=== PATIENT | female | born 1955 | race Caucasian/White ===

== ENCOUNTER 2025-06-12 12:19 | Emergency (ER) | payer OTHER, SELFPAY ==
[2025-06-12 12:23] VITALS: BP 146/91
--- NOTE | 2025-06-12 13:29 | ED.GENMED ---
History of Present Illness
General
Chief Complaint: Headache
Source: patient and spouse
Time Seen by Provider: 06/12/25 13:10
History of Present Illness
History of Present Illness:
This patient is a 70-year-old female presents emergency department with complaints of headache. She says it is a typical 'migraine' for her for which she is under the care of a neurologist for. Patient states that for years she has had migraines
usually once every few months but in the last 4 years, since getting a COVID shot, she gets the headaches with much more frequency such that they are essentially constant and just temporarily relieved with medications. She saw a neurologist 3 weeks
ago and was prescribed steroids which helped her but then the headache resumes once she finishes the steroids. She denies recent trauma or fall, fever, chills, numbness, tingling, diplopia, dysarthria, dysphagia, imbalance, dizziness,
lightheadedness, chest pain, dyspnea. She does note the typical nausea and photosensitivity with migraines. She states that the headache is located across the top and back of her head. She is taking daily medication for this with partial relief
of symptoms.
Past History
Past History
ED Past Medical History: Other (Migraines)
ED Past Surgical History: Other (Breast implant removal)
Social History
Tobacco: Non-smoker
Alcohol: None
Drug: None
Personal:
Living: with family
Phy Exam
Physical Exam
Physical Exam:
GENERAL: Alert , in no apparent distress
EYE: pupils equal and reactive, no nystagmus, EOMI, no objective photophobia noted
NECK: Supple, no significant adenopathy.
ENT: o/p clr, mmm.
CARDIAC: Regular rate and rhythm .
LUNGS: Clear breath sounds bilaterally, no acute respiratory distress, no wheezes/rales/rhonchi
ABDOMEN: Soft, without focal tenderness, no r/g, no cvat
NEUROLOGICAL: Alert and oriented, no focal neuro deficits, [id number] normal, motor 5 out of 5, sensory intact, gait normal, cranial nerves II through XII intact
SKIN: Warm and dry, skin intact.
MUSCULOSKELETAL: No edema, well perfused.
PSYCH: Normal and appropriate interaction but tearful at times due to frustration with ongoing symptoms..
Course
Orders/Labs/Results
Orders:
Orders
06/12/25 13:28
0.9% Sodium Chloride 1000 ml [Nss] 1,000 ml IV BOLUS
Diphenhydramine [Benadryl] 25 mg IV NOW STA
Metoclopramide [Reglan] 10 mg IV NOW STA
06/12/25 13:58
EKG [Electrocardiogram (*1)] Urgent
Reason for Study: Vertigo / Dizzy
EKG- Treatment ONCE
Vital Signs
Initial and Last Documented VS:
Initial Vital Signs
Temp Pulse Resp BP Pulse Ox
98 F 69 16 146/91 98
06/12/25 12:23 06/12/25 12:23 06/12/25 12:23 06/12/25 12:23 06/12/25 12:23
Last Documented Vital Signs
Temp Pulse Resp BP Pulse Ox
97.5 F 71 20 150/76 98
06/12/25 13:56 06/12/25 13:56 06/12/25 13:56 06/12/25 13:56 06/12/25 13:56
*Pulse Oximetry
SaO2: 98
Oxygen Mode of Delivery: Room air
Patient hypoxic: no
*Critical Care Note
Total Time (30-74mins, 75-104mins- exclusive of procedures): Not Applicable
Update Note
Update Note:
Patient presents to the Emergency Department with ____headache
Number and Complexity of Problems Addressed at the Encounter
� Chronic conditions affecting care:
� Acute Exacerbation and/or Progression of Chronic Illness:
� Differential Diagnosis includes: But not limited to persistent migraine, tension headache, nonspecific headache, meningitis, encephalitis, etc. etc.
Amount and/or Complexity of Data to be Reviewed and Analyzed
� I performed an independent evaluation of and my interpretation is:
EKG:
CT:
Xrays:
Laboratory Studies:
Other:
� Review of other/old records reveals:
� Clinical information was obtained by an independent historian: who is bedside. He reports that patient has gone to the emergency department in the past for the same symptoms and received a 'cocktail' of medications
that helped her.
� Prescriptions/Medications Considered but not given:
� Further testing considered but not performed:
Risk of Complications and/or Morbidity or Mortality of Patient Management
� Social determinants of health affecting care:
� Discussion with other providers (PCP, Hospitalists, Consultants, etc):
� Escalation of care including admission/observation vs risk of discharge considered:300 PM pT smiling, feels great, in nad, would like to go home. D/w her import off/uand reasons ot rted.
ED Attending Note
-
Portions of this chart may have been created with voice recognition software.� Occasional wrong word or��sound alike� substitutions may have occurred due to the inherent limitations of voice recognition software.
Discharge Plan
Departure
Patient Disposition: Home (Routine Discharge)
Date of Disposition: 06/12/25
Time of Disposition: 15:00
Patient with high blood pressure during this ER visit?: Yes
Condition: Good
Discharge Problem:
Headache
Instructions: Migraines (DC), BLOOD PRESSURE
Referrals:
Klaus Escobar MD [Family Provider]
Activity Restrictions/Additional Instructions:
IF YOU DEVELOP FEVER, CHILLS, CHEST PAIN, TROUBLE BREATHING, NUMBNESS, VISUAL CHANGES, NEW/WORSENING HEADACHE, GET WORSE, DO NOT GET BETTER, OR OTHER WORRISOME SIGNS, GO TO THE ER IMMEDIATELY!
Interventions
Interventions:
*Risk Screen - Suicide Last Done: 06/12/25 12:23
*General Assessment Last Done: 06/12/25 13:56
*Neglect/Abuse Screening Last Done: 06/12/25 12:23
*ED- Fall Risk Assessment Last Done: 06/12/25 13:56
*ED COVID-19 Vaccine History Last Done: 06/12/25 13:56
*ED Influenza Vaccine History Last Done: 06/12/25 13:56
ED- Neurological Assessment Last Done: 06/12/25 13:56
Discharge Date and Time
Print Language: ZAMBIAN
[2025-06-12 13:43] VITALS: BP 150/76; BMI 20.2
[2025-06-12] MEDS: NSS 1000 IV (13:48)
[2025-06-12] MEDS: REGLAN 10 MG IV (13:48)
[2025-06-12] MEDS: BENADRYL 25 MG IV (13:48)
[2025-06-12 13:56] VITALS: BP 150/76
[2025-06-12 14:00] VITALS: BP 169/75
[2025-06-12 15:00] VITALS: BP 140/58
[2025-06-12 15:11] VITALS: BP 140/58
== END 2025-06-12 15:20 | disposition home or self-care (01) ==
LOC: EMR 12:19
PROVIDERS: EMERGENCY PHYSICIAN Emergency Medicine; FAMILY PHYSICIAN General Practice
DX: G43.909 Migraine, unspecified, not intractable, without status migrainosus (principal); Z98.82 Breast implant status
CPT/HCPCS: 96374; 96375; 96361; 99284; 93005